=== PATIENT | female | born 1945 | race Caucasian/White ===

== ENCOUNTER → 2025-06-26 08:01 | Outpatient (REF) | payer MEDICARE, OTHER, SELFPAY | LOC: WOUND 08:01 | PROVIDERS: ATTENDING PHYSICIAN Surgery | DX: L97.312 Non-pressure chronic ulcer of right ankle with fat layer exposed (principal); C44.90 Unspecified malignant neoplasm of skin, unspecified; I87.2 Venous insufficiency (chronic) (peripheral); I73.9 Peripheral vascular disease, unspecified | CPT/HCPCS: 99213 ==

== ENCOUNTER 2025-09-25 08:48 | Outpatient (REF) | payer MEDICARE, OTHER, SELFPAY | END 2025-09-25 23:59 | disposition home or self-care (01) | LOC: WOUND 08:48 | PROVIDERS: ATTENDING PHYSICIAN Surgery | DX: L97.312 Non-pressure chronic ulcer of right ankle with fat layer exposed (principal); C44.90 Unspecified malignant neoplasm of skin, unspecified; I87.2 Venous insufficiency (chronic) (peripheral); I73.9 Peripheral vascular disease, unspecified | CPT/HCPCS: 11042 ==

== ENCOUNTER 2025-10-13 09:14 | Outpatient (REF) | payer MEDICARE, OTHER, SELFPAY | END 2025-10-13 23:59 | disposition home or self-care (01) | LOC: WOUND 09:14 | PROVIDERS: ATTENDING PHYSICIAN Registered Nurse | DX: L97.312 Non-pressure chronic ulcer of right ankle with fat layer exposed (principal); C44.90 Unspecified malignant neoplasm of skin, unspecified; I87.2 Venous insufficiency (chronic) (peripheral); I73.9 Peripheral vascular disease, unspecified | CPT/HCPCS: 99213 ==